=== PATIENT | male | born 2000 | race Hispanic/Latino ===

== ENCOUNTER 2022-08-29 16:11 | Emergency (ER) | payer BC ==
[~2022-08-29] VITALS: Ht 180.3 cm; Wt 97.5 kg
[2022-08-29] MEDS ORDERED: ONDANSETRON HCL INJ 2MG/ML 2ML 2 MG/ML VIAL IV STA (16:44)
[2022-08-29] MEDS ORDERED: SODIUM CHLORIDE 0.9% 1000ML 1,000 ML IV SCH (16:45)
[2022-08-29] MEDS ORDERED: SODIUM CHLORIDE 0.9% 1000ML 1,000 ML ONE (16:47)
[2022-08-29] MEDS ORDERED: ONDANSETRON HCL INJ 2MG/ML 2ML 2 MG/ML VIAL ONE (16:47)
[2022-08-29] MEDS ORDERED: ONDANSETRON ODT4 MG PO (18:44)
[2022-08-29 19:05] VITALS: BP 133/80
== END 2022-08-29 19:07 | disposition home or self-care (01) ==
LOC: FSED 16:22
DX: R10.13 Epigastric pain (principal); R11.2 Nausea with vomiting, unspecified; E11.65 Type 2 diabetes mellitus with hyperglycemia; I10 Essential (primary) hypertension
CPT/HCPCS: 36415; 74176; 80053; 81003; 82948; 85025; 99284; J2405; J7030

== ENCOUNTER 2024-12-27 16:40 | Emergency (ER) | payer SELFPAY ==
[~2024-12-27] VITALS: Ht 177.8 cm; Wt 81.6 kg
[~2024-12-27 16:40] MED LIST: ONDANSETRON ODT4 MG PO
[2024-12-27 16:48] VITALS: TEMP 97.8
[2024-12-27 17:30] LABS: BASOPHILS % 0.2 % (0.0-1.0); EOSINOPHILS % 0.0 % (0.0-6.0); LYMPHOCYTES % 13.3 % (18.0-39.1); MONOCYTES % 5.7 % (4.4-11.3); NEUTROPHILS % 80.5 % (38.7-80.0); RED CELL DISTRIBUTION WIDTH 12.1 % (11.7-14.4)
[2024-12-27] MEDS ORDERED: SODIUM CHLORIDE 0.9% 1000ML 1,000 ML ONE (17:32)
[2024-12-27] MEDS ORDERED: ONDANSETRON HCL INJ 2MG/ML 2ML 2 MG/ML VIAL ONE (17:32)
[2024-12-27] MEDS: SODIUM CHLORIDE 0.9% 1000ML 1,000 ML IV ONE ×2 (17:36→19:00)
[2024-12-27] MEDS: ONDANSETRON HCL INJ 2MG/ML 2ML 2 MG/ML VIAL IV STA (17:36)
[2024-12-27 17:43] LABS: EST GLOMERULAR FILTRATION RATE 127.0 ML/MIN (>=60)
[2024-12-27 18:14] LABS: ABG PH 7.44 (7.35-7.45)
[2024-12-27 18:15] LABS: ABG BASE EXCESS 3.0 mmol/L (-2 - 3); ABG HCO3 27 mmol/L (22-26); ABG OXYGEN SATURATION 97.0 % (95-98); ABG PCO2 40 mmHg (35-45); ABG PO2 89 mmHg (80-105); ABG TCO2 28
[2024-12-27 18:29] LABS: AMPHETAMINES SCREEN,URINE NEGATIVE (NEGATIVE); COCAINE SCREEN,URINE NEGATIVE (NEGATIVE); METHADONE SCREEN, URINE NEGATIVE (NEGATIVE); OPIATES SCREEN,URINE NEGATIVE (NEGATIVE)
[2024-12-27 18:30] LABS: CANNABINOIDS SCREEN,URINE POSITIVE (NEGATIVE); LEUKOCYTE ESTERASE ,URINE NEGATIVE (NEGATIVE); PROTEIN,URINE DIPSTICK 1+ (NEGATIVE)
[2024-12-27 18:31] LABS: URINE UROBILINOGEN 0.2 mg/dL (0.2 - 1)
[2024-12-27 18:33] LABS: EPITHELIAL CELLS,URINE RARE /LPF; WBC,URINE (MAN) 0-5 /HPF (0-5)
[2024-12-27] MEDS: DIPHENHYDRAMINE HCL INJ 50 MG/ML VIAL IV ONE (19:00)
[2024-12-27] MEDS: METOCLOPRAMIDE HCL 10 MG/2ML VIAL IV ONE (19:00)
[2024-12-27] MEDS ORDERED: HYDRALAZINE HCL 20 MG/ML VIAL IV ONE (19:30)
[2024-12-27 19:36] VITALS: PULSE 98; RESP 18; O2SAT 100
[2024-12-27] MEDS ORDERED: ONDANSETRON ODT4 MG SL (19:38)
[2024-12-27] MEDS ORDERED: PANTOPRAZOLE SO40 MG PO (19:38)
[2024-12-29 06:25] LABS: ABG BASE EXCESS 3.0 mmol/L (-2 - 3); ABG HCO3 27 mmol/L (22-26); ABG OXYGEN SATURATION 97.0 % (95-98); ABG PCO2 40 mmHg (35-45); ABG PH 7.44 (7.35-7.45); ABG PO2 89 mmHg (80-105); ABG TCO2 28
== END 2024-12-27 20:06 | disposition home or self-care (01) ==
LOC: ER 18:40
DX: R11.2 Nausea with vomiting, unspecified (principal); F12.90 Cannabis use, unspecified, uncomplicated; E11.65 Type 2 diabetes mellitus with hyperglycemia; I10 Essential (primary) hypertension
CPT/HCPCS: 36415; 36600; 80053; 80307; 81001; 82805; 82948; 83690; 85025; 99283; J1200; J2405; J2765; J7030